=== PATIENT | female | born 1970 | race Caucasian/White ===

== ENCOUNTER 2017-12-24 16:19 | Emergency (ER) | payer OTHER, BC ==
[~2017-12-24] VITALS: Ht 172.7 cm; Wt 141.8 kg
[2017-12-24] MEDS ORDERED: PERCOCET 5/31 TABLET PO (19:08)
[2017-12-24 19:29] VITALS: BP 155/97
== END 2017-12-24 19:29 | disposition home or self-care (01) ==
LOC: EME 16:19
PROC: 2W38X1Z Immobilization of Right Upper Extremity using Splint (ICD-10-PCS; principal; 2017-12-24)
DX: S52.501A Unspecified fracture of the lower end of right radius, initial encounter for closed fracture (principal); S52.601A Unspecified fracture of lower end of right ulna, initial encounter for closed fracture; W10.9XXA Fall (on) (from) unspecified stairs and steps, initial encounter; Y93.01 Activity, walking, marching and hiking
CPT/HCPCS: 73110; 73130; 99281; 99284

== ENCOUNTER → 2017-12-26 | Outpatient (CLI) | payer OTHER ==
[~2017-12-26] MED LIST: PERCOCET 5/31 TABLET PO
== END | disposition home or self-care (01) ==
LOC: CDC 14:10
DX: Z01.810 Encounter for preprocedural cardiovascular examination (principal); S52.531A Colles' fracture of right radius, initial encounter for closed fracture; S52.691A Other fracture of lower end of right ulna, initial encounter for closed fracture; M25.431 Effusion, right wrist; M25.531 Pain in right wrist
CPT/HCPCS: 93000